=== PATIENT | female | born 1980 | race Caucasian/White ===

== ENCOUNTER 2017-12-06 12:51 | Emergency (ER) | payer OTHER ==
[~2017-12-06] VITALS: Ht 180.3 cm; Wt 129.3 kg
[~2017-12-06 12:51] MED LIST: BACTRIM DS 8001 TAB PO; CLINDAMYCIN300 MG PO; IBUPROFEN800 M1 PO; PRENATABS RX T1 EACH PO
[2017-12-06 13:36] LABS: ABSOLUTE BASOPHIL COUNT 0.1 /CUMM (0.0-0.2); ABSOLUTE EOSINOPHIL COUNT 0.2 /CUMM (0.0-0.7); ABSOLUTE GRANULOCYTE CT 7.6 /CUMM (1.4-6.5); ABSOLUTE LYMPH COUNT 2.2 /CUMM (1.2-3.4); ABSOLUTE MONOCYTE COUNT 0.4 /CUMM (0.10-0.60); BASOPHIL % 0.9 % (0.0-2.0); EOSINOPHIL % 2.3 % (0-5); GRANULOCYTE % 71.5 % (42.2-75.2); HEMATOCRIT 38.4 % (37-47); MEAN CORPUSCULAR HGB 27.3 PG (27.0-31.0); MEAN CORPUSCULAR HGB CONC 33.4 G/DL (33.0-37.0); MEAN CORPUSCULAR VOLUME 81.9 FL (81.0-99.0); PLATELET COUNT 263 /CUMM (130-400); RBC DISTRIBUTION WIDTH 14.7 % (11.5-14.5); RED BLOOD CELL CT 4.69 /CUMM (4.20-5.40); WHITE BLOOD CELL COUNT 10.6 /CUMM (4.8-10.8)
--- NOTE | 2017-12-06 13:58 | RADIOLOGY REPORT ---
EXAMINATION: CHEST 2 VIEWS CLINICAL INFORMATION: Chest pain. COMPARISON: April 2012. TECHNIQUE: PA and lateral views of the chest were obtained. FINDINGS: The cardiac silhouette is not enlarged. The mediastinal and hilar contours are unremarkable. There are neither pleural effusions nor pneumothoraces. There are no consolidations. The osseous structures are unremarkable. IMPRESSION: No evidence for acute disease.
--- NOTE | 2017-12-06 14:11 | ED CARDIAC/CP/PALPITATIONS ---
History of Present Illness General Chief Complaint: Chest Pain Stated Complaint: CHEST PAIN X FEW DAYS Source: patient, old records Exam Limitations: no limitations Vital Signs & Intake/Output Vital Signs & Intake/Output Vital Signs Date Time Temp Pulse Resp B/P B/P Pulse O2 O2 Flow FiO2 Mean Ox Delivery Rate 12/06 1450 74 19 95 Room Air 12/06 1425 97.6 93 18 138/86 98 Room Air 12/06 1310 97.7 107 15 127/74 92 Room Air Room Air Allergies Coded Allergies: No Known Allergies (12/06/17) Reconcile Medications No Known Home Medications Triage Note: PT TO ED FOR C/C OF MID EPIGASTRIC PAIN THAT HAS BEEN INTERMITTENT X 1 WEEK. DENIES CHEST PAIN AT THIS TIME, BUT WHEN IT HAPPNENS IT'S A SQUEEZING FEELING. PT REPORTS SHE HAS HAD A LOT OF STRESS LATELY AND IS ANXIOUS AND THINKS IT COULD BE RELATED TO THAT BUT WANTS TO BE SURE. -SOB, DIZZINESS, NUMBNESS/TINGLING. VSS. Triage Nurses Notes Reviewed? yes Onset: Gradual Duration: week(s): Timing: recent history Quality/Severity: moderate, squeezing Location: substernal : No Patient currently breastfeeds: No HPI: 37-year-old female presents emergency department complaining of intermittent chest pains for the past week. She reports intermittent substernal squeezing sensation which lasts for a few seconds and resolves on its own. Patient states the symptoms are worse when she "thinks about them". Patient has had similar symptoms in the past, has had prior cardiac workup. She was told at that time that cardiac testing was within normal limits, she was informed her symptoms are likely related to anxiety. The patient did not want medication for anxiety she does not like taking medication. Patient reports daily stress, she has 6 kids which she takes care of. Patient states her current symptoms feel similar to previous episodes in the past. The patient denies dyspnea, cough, hemoptysis, abdominal pain, vomiting, diaphoresis, syncope. (Rose SANTIAGO,Naa Soto) Past History Travel History Traveled to [place] past 21 day No Medical History Any Pertinent Medical History? see below for history Neurological: NONE EENT: NONE Cardiovascular: NONE Respiratory: NONE Gastrointestinal: NONE Hepatic: NONE Renal: NONE Musculoskeletal: PILONIDAL CYST Psychiatric: NONE Endocrine: NONE Blood Disorders: NONE Cancer(s): NONE INFORMATION MANAGER/Reproductive: NONE Surgical History Surgical History: non-contributory Psychosocial History What is your primary language Azeri Tobacco Use: Quit >30 days ago ETOH Use: occasional use Illicit Drug Use: denies illicit drug use Family History Hx Contributory? No (Naa Conrad) Review of Systems Review of Systems Constitutional: Reports: no symptoms. EENTM: Reports: no symptoms. Respiratory: Reports: no symptoms. Cardiovascular: Reports: see HPI. GI: Reports: no symptoms. Genitourinary: Reports: no symptoms. Musculoskeletal: Reports: no symptoms. Skin: Reports: no symptoms. Neurological/Psychological: Reports: no symptoms. Hematologic/Endocrine: Reports: no symptoms. Immunologic/Allergic: Reports: no symptoms. All Other Systems: Reviewed and Negative (Naa Conrad) Physical Exam Physical Exam General Appearance: well developed/nourished, no apparent distress, alert, awake Head: atraumatic, normal appearance Eyes: Bilateral: normal appearance. Ears, Nose, Throat: hearing grossly normal Neck: normal inspection, supple, full range of motion Respiratory: normal breath sounds, no respiratory distress, lungs clear Cardiovascular: regular rate/rhythm, normal peripheral pulses Peripheral Pulses: 2+ radial (R), 2+ radial (L) Gastrointestinal: normal bowel sounds, soft, non-tender, no organomegaly Back: normal inspection, normal range of motion Extremities: normal inspection, normal range of motion Neurologic/Psych: awake, alert, oriented x 3 Skin: intact, normal color, warm/dry Core Measures ACS in differential dx? Yes CVA/TIA Diagnosis No Sepsis Present: No Sepsis Focused Exam Completed? No (Naa Conrad) Progress Differential Diagnosis: AMI, CHF/pulm edema, hyperventilation, musculoskeletal pain, myocarditis, pericarditis, pneumonia, pneumothorax, PSVT, pulmonary embolism, unstable angina Plan of Care: Orders Procedure Date/time Status Add-on Test (ER Only) 12/06 1319 Active TROPONIN LEVEL 12/06 1307 Complete HUMAN BETA HCG SCREEN 12/06 1307 Complete COMPREHENSIVE METABOLIC PANEL 12/06 1307 Complete CBC WITHOUT DIFFERENTIAL 12/06 1307 Complete EKG 12/06 1252 Active Laboratory Tests 12/06/17 1325: Anion Gap 12, Estimated GFR > 60, BUN/Creatinine Ratio 16.3, Glucose 97, Calcium 9.6, Total Bilirubin 0.4, AST 21, ALT 21, Alkaline Phosphatase 78, Troponin I < 0.01, Total Protein 7.7, Albumin 4.3, Globulin 3.4, Albumin/Globulin Ratio 1.3, Total Beta HCG NEGATIVE, CBC w Diff NO MAN DIFF REQ, RBC 4.69, MCV 81.9, MCH 27.3, MCHC 33.4, RDW 14.7 H, MPV 10.0, Gran % 71.5, Lymphocytes % 21.2, Monocytes % 4.1, Eosinophils % 2.3, Basophils % 0.9, Absolute Granulocytes 7.6 H, Absolute Lymphocytes 2.2, Absolute Monocytes 0.4, Absolute Eosinophils 0.2, Absolute Basophils 0.1 Chest x-ray shows no acute abnormality. EKG is in sinus tachycardia without acute ischemic changes. Patient's troponin enzyme is negative. Repeat vital signs show that tachycardia has resolved. Patient is young without cardiac risk factors, low suspicion for acute coronary syndrome based on her clinical presentation and diagnostic workup. Diagnosis pulmonary embolism was considered however low suspicion for PE based on patient's current symptoms. Patient will follow-up with cardiology. Informed patient that symptoms may be related to anxiety however cardiology clearance is preferred, following this she may follow up with psychiatry necessary. Patient in no acute distress, nontoxic appearing, vital signs are stable. The patient agrees with the plan of care. The patient was seen and evaluated by Dr. Crocker who agrees with this plan. Diagnostic Imaging: Viewed by Me: Radiology Read. Discussed w/RAD: Radiology Read. CXR Impression: PATIENT: ETHAN ANTOINE PRESENT AGE : 37 PATIENT ACCOUNT NO: [id number] : 78 LOCATION: [facility] ORDERING PHYSICIAN: Naa SANTIAGO SERVICE DATE: 12/06/17 EXAM TYPE: RAD - XRY-CHEST XRAY, TWO VIEWS EXAMINATION: CHEST 2 VIEWS CLINICAL INFORMATION: Chest pain. COMPARISON: April 2012. TECHNIQUE: PA and lateral views of the chest were obtained. FINDINGS: The cardiac silhouette is not enlarged. The mediastinal and hilar contours are unremarkable. There are neither pleural effusions nor pneumothoraces. There are no consolidations. The osseous structures are unremarkable. IMPRESSION: No evidence for acute disease. DICTATED BY: Eloy Han MD DATE/TIME DICTATED:12/06/171338 JUNIOR HIGH SCHOOL TEACHER:QING DATE/TIME TRANSCRIBED:12/06/171338 CONFIDENTIAL, DO NOT COPY WITHOUT APPROPRIATE AUTHORIZATION. <Electronically signed in Other Vendor System> SIGNED BY: Eloy Han MD 12/06/17 5792 Initial ED EKG: sinus tachycardia @111bpm, nonspecific ST changes Prior EKG: unchanged (06/12/16) (Naa Conrad) Departure Departure Disposition: HOME OR SELF CARE Condition: Stable Clinical Impression Primary Impression: Chest pain Qualifiers: Chest pain type: unspecified Qualified Code: R07.9 - Chest pain, unspecified Referrals: Blake SARABIA,Chiquis Silva MD,Kaylyn Carranza Unknown (PCP/Family) Additional Instructions: As discussed follow-up with the nutrition tech regarding your chest pain symptoms. If you develop any worsening symptoms or other concerns please return to emergency department. If the nutrition tech clears you may be beneficial to follow-up with psychiatrist as therapist regarding the stress you have at home. Please note that there might be incidental findings in your evaluation that are unrelated to the current emergency department visit. Please notify your primary care doctor about this emergency department visit in order to obtain and review all of the testing performed so that these incidental findings can be monitored as needed. If you had an x-ray performed, please understand that some fractures may not be seen on the initial set of x-rays. If your symptoms persist you might need a repeat set of x-rays to check for such a fracture. If you had a laceration evaluated, please understand that foreign bodies such as glass or wood may not be visible to the naked eye or on plain x-rays. If the wound becomes red, swollen, increasingly more painful or if there is any drainage from the wound, please have it reevaluated by a physician for the possibility of a retained foreign body. If you're unable to follow up as outlined in the discharge instructions please return to the emergency department. Thank you for choosing the [facility] Emergency Department for your care. It was a pleasure to serve you today. Departure Forms: Customer Survey General Discharge Information Prescriptions: Current Visit Scripts No Known Home Medications (Naa Conrad) PA/TRUCK SAFETY INSPECTOR Co-Sign Statement Statement: ED Attending supervision documentation- [] I saw and evaluated the patient. I have also reviewed all the pertinent lab results and diagnostic results. I agree with the findings and the plan of care as documented in the PA's/TRUCK SAFETY INSPECTOR's documentation. [x] I have reviewed the ED Record and agree with the PA's/TRUCK SAFETY INSPECTOR's documentation. [] Additions or exceptions (if any) to the PAs/TRUCK SAFETY INSPECTOR's note and plan are summarized below: [] (Elio Crocker DO) Critical Care Note Critical Care Note Critical Care Time: non-applicable (Rose SANTIAGO,Naa Soto)
[2017-12-06 14:25] VITALS: BP 138/86
== END 2017-12-06 14:51 ==
LOC: ERH 12:51
PROVIDERS: Physician Assistant
DX: R07.89 Other chest pain (principal)
CPT/HCPCS: 71046; 93005; 93010